=== PATIENT | male | born 1960 | race Caucasian/White ===

== ENCOUNTER 2017-10-14 11:07 | Inpatient (IN) | payer MEDICAID ==
[2017-10-14 12:28] LABS: BASO # 0.1 K/uL (0.0-0.2); EOS # 0.1 K/uL (0.0-0.7); EOS % 2.3 % (0.0-4.0); HEMOGLOBIN 12.9 g/dL (12.0-18.0); LYMPH # 1.2 K/uL (1.0-4.3); LYMPH % 20.6 % (20.0-40.0); MEAN CELL VOLUME 86.7 fl (80.0-94.0); MEAN CORPUSCULAR HEMOGLOBIN 28.6 pg (27.0-31.0); MEAN PLATELET VOLUME 9.6 fl (7.2-11.7); MONO # 0.4 K/uL (0.0-0.8); MONO % 7.3 % (0.0-10.0); NEUT # 4.1 K/uL (1.8-7.0); NEUT % 67.8 % (50.0-75.0); RBC 4.5 Mil/uL (4.40-5.90); RED CELL DISTRIBUTION WIDTH 13.7 % (11.5-14.5)
[2017-10-14 12:39] LABS: INR 1.1 (0.9-1.2); PARTIAL THROMBOPLASTIN TIME 30.8 Seconds (25.6-37.1); PROTHROMBIN TIME 12.7 Seconds (9.8-13.1)
[2017-10-14 13:03] LABS: BLOOD UREA NITROGEN 15 mg/dl (9-20); GFR AFRICAN-AMERICAN > 60; GFR NON-AFRICAN AMERICAN > 60; HDL CHOLESTEROL 27 MG/DL (30-70)
[2017-10-14 13:14] LABS: LDL CHOLESTEROL 70 mg/dL (0-129)
[2017-10-14] MEDS ORDERED: Nicardipine 20 MG/200 ML 20 MG/200 ML BAG IV ONE ×3 (13:47→21:09)
--- NOTE | 2017-10-14 13:49 | ED PDOC ---
HPI: Neurologic - General Time Seen by Provider: 10/14/17 11:39 Chief Complaint (Nursing): Weakness/Neurological Deficit Chief Complaint (Provider): Difficulty speaking Source: patient Exam Limitations: no limitations - History of Present Illness Timing/Duration: 1 week Associated Symptoms: other (difficulty with speech). denies: fever/chills, nausea/vomiting, numbness in legs/feet, weakness Allergies/Adverse Reactions: Allergies No Known Allergies Allergy (Verified 10/14/17 11:29) Home Medications: Ambulatory Orders Atenolol [Tenormin] 50 mg PO DAILY 03/14/15 Diphenhydramine HCl [Diphenhydramine] 100 mg PO HS 03/14/15 Valsartan/Hydrochlorothiazide [Valsartan and Hydrochlorothiazide 12.5 mg-80 ] 1 tab PO DAILY 03/14/15 Escitalopram [Lexapro] 20 mg PO DAILY 10/14/17 Multivitamin [Multi-Vitamin Daily] 1 tab PO DAILY 10/14/17 Olanzapine [Zyprexa] 15 mg PO HS 10/14/17 Vitamin E [Vitamin E 400 Units Cap] 400 unit PO DAILY 10/14/17 Additional Complaint(s): Miko Pereyra is a 57 year old male, with a past medical history of HTN, gastritis and schizophrenia, who presents to the emergency department accompanied by family members for difficulty with speech onset for x1 week. Patient doesn't know and didn't think too much of symptoms but was prompted to the ED by family members. He denies any headache, weakness or numbness, gait problems, fever, chills, nausea, vomit, or diarrhea. No further medical complaints. PMD: Lizzy Perry NIHSS Stroke Scale - Date/Time Evaluation Performed Date Performed: 10/14/17 Time Performed: 11:40 When Was NIHSS Performed: 7-10 days - How Severe is the Stroke Level of Consciousness: 0=Alert LOC to Questions: 0=Both comments correct LOC to commands: 0=Obeys both correctly Best Gaze: 0=Normal Visual: 0=No visual loss Facial: 1=Minor asymmetry Motor Arm - Left: 0=No drift Motor Arm - Right: 0=No drift Motor Leg - Left: 0=No drift Motor Leg - Right: 0=No drift Limb Ataxia: 0=Absent Sensory: 0=Normal Best Language: 0=No aphasia Dysarthia: 1=Mild to moderate slurring Extinction & Inattention (Neglect): 0=Normal, no object Score: 2 rTPA Inclusion/Exclusion - Refusal of Treatment Patient Refused Treatment: No - Inclusion Criteria for Altepase Patient is 18 years or Older: Yes The Clinical Diagnosis of Ischemic Stroke That is Causing a Potentially Disabling Neurological Deficit: No Time of Onset is Well Established to be Less Than 270 Minute Before Treatment Would Begin: No Risk/Benefit Discussed With Patient/Family Member Present: No - Exclusion Criteria for Altepase Evidence of an Intracranial Hemorrhage: Yes Past Medical History Reviewed: Historical Data, Nursing Documentation, Vital Signs Vital Signs: Last Vital Signs Temp 97.4 F L 10/14/17 11:22 Pulse 60 10/14/17 11:22 Resp 22 10/14/17 11:22 BP 171/101 H 10/14/17 11:22 Pulse Ox 98 10/14/17 11:22 - Medical History PMH: Gastritis, HTN, Schizophrenia - Surgical History Surgical History: No Surg Hx - Family History Family History: States: No Known Family Hx - Social History Current smoker - smoking cessation education provided: No Alcohol: None Drugs: Denies - Home Medications Home Medications: Ambulatory Orders Medication Instructions Recorded Atenolol [Tenormin] 50 mg PO DAILY 03/14/15 Diphenhydramine HCl 100 mg PO HS 03/14/15 [Diphenhydramine] Valsartan/Hydrochlorothiazide 1 tab PO DAILY 03/14/15 [Valsartan and Hydrochlorothiazide 12.5 mg-80 ] Escitalopram [Lexapro] 20 mg PO DAILY 10/14/17 Multivitamin [Multi-Vitamin Daily] 1 tab PO DAILY 10/14/17 Olanzapine [Zyprexa] 15 mg PO HS 10/14/17 Vitamin E [Vitamin E 400 Units Cap] 400 unit PO DAILY 10/14/17 - Allergies Allergies/Adverse Reactions: Allergies Allergy/AdvReac Type Severity Reaction Status Date / Time No Known Allergies Allergy Verified 10/14/17 11:29 Review of Systems ROS Statement: Except As Marked, All Systems Reviewed And Found Negative Constitutional: Negative for: Fever, Chills Gastrointestinal: Negative for: Nausea, Vomiting, Diarrhea Neurological: Positive for: Change in Speech (difficulty with speech). Negative for: Weakness, Numbness, Headache, Other (gait problems) Physical Exam - Reviewed Nursing Documentation Reviewed: Yes Vital Signs Reviewed: Yes - Physical Exam Appears: Positive for: Non-toxic, No Acute Distress Head Exam: Positive for: ATRAUMATIC, NORMAL INSPECTION, NORMOCEPHALIC Skin: Positive for: Normal Color, Warm, Dry Eye Exam: Positive for: Normal appearance, EOMI, PERRL ENT: Positive for: Normal ENT Inspection Neck: Positive for: Painless ROM, Supple Cardiovascular/Chest: Positive for: Regular Rate, Rhythm. Negative for: Murmur Respiratory: Positive for: Normal Breath Sounds. Negative for: Respiratory Distress Gastrointestinal/Abdominal: Positive for: Normal Exam, Soft. Negative for: Tenderness, Guarding, Rebound Extremity: Positive for: Normal ROM (upper and lower extremities.). Negative for: Tenderness, Deformity, Swelling Neurologic/Psych: Positive for: Alert, carriage feeder II-XII (facial assymetry), Oriented ( x3), Gait (steady), Facial Droop (mild ). Negative for: Motor/Sensory Deficits (normal on arms and legs) - Laboratory Results Result Diagrams: 10/15/17 04:45 10/15/17 04:45 - ECG O2 Sat by Pulse Oximetry: 98 (RA) Pulse Ox Interpretation: Normal - Critical Care Total Time (In Min): 30 Medical Decision Making Medical Decision Making: Initial Impression: Dysarthria, CVA, hemorrhagic CVA. Initial Plan: Stroke protocol work up --Head w/o Contrast [CT] --EKG --Alcohol serum --BMP --Drug screen, urine --Lipid Panel --Troponin I --CBC w/ differential --PTT --PT --Reevaluation 13:[address] FINDINGS: HEMORRHAGE: Small intraparenchymal hemorrhage is appreciate left basal ganglia with limited local edema. The density is likely E subacute rather than acute in appearance overall. Clinically correlate further. Subacute timeframe fits with the clinical history of dysarthria for almost 1 week. There is no significant mass effect although the hemorrhage does approach the lateral margins of the anterior body of the left lateral ventricle. Overall volume of the hemorrhagic collection is as follows: 2.0 x 1.4 x 2.6 cm (anteroposterior by transverse by superoinferior dimensions). BRAIN: Otherwise, a moderate sized chronic lobar infarction is identified in the right frontal lobe with a chronic lacune identified the upper right basal ganglia posteriorly and possibly at the left thalamus also. Further, white-matter appears lucent surrounding the lateral ventricles and also in the subcortical distribution potentially reflecting advanced chronic microangiopathy for a 57- year-old patient or other white-matter disorder. Corpus callosum does not appear affected. Clinically correlate further. 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 VENTRICLES: Unremarkable. No hydrocephalus. CALVARIUM: Unremarkable. PARANASAL SINUSES: Unremarkable as visualized. No significant inflammatory changes. MASTOID AIR CELLS: Unremarkable as visualized. No inflammatory changes. OTHER FINDINGS: None. IMPRESSION: 1. For mild intraparenchymal hemorrhage identified the left basal ganglia measure 2.6 cm greatest dimension with limited local edema surrounding the periphery. The level of density suggests probable subacute timeframe. Clinically correlate further. No significant mass effect this time. Please see discussion above. 2. Relatively prominent chronic microangiopathy type white-matter lucency pattern appear relatively advanced for age of the patient. Clinically correlate for potential additional white matter etiologies. 3. Moderate from chronic lobar infarction. Chronic lacune upper right basal ganglia and possibly tiny lacune left thalamus. Findings discussed with Dr. Gould 10/14/2017 1:35 p.m. with written down and read back verification. -Spoke with Dr. Hager for admission and wants Dr. Pabon from neurology and will also consult with neurosurgeon. -Spoke with Dr. Pabon who advised to control the HTN with Nicardipine. TPA in contraindicated and not a candidate as well. ASA is contraindicated due to ICH. -Discussed with Dr. Martinez who states no neurosurgery treatment or evaluation is indicated for this patient. 15:40 -Spoke with ict sales assistant, Dr. Waddell, who accepted patient to ICU for uncontrolled blood pressure. Scribe Attestation: Documented by Charlie Durant, acting as a scribe for Cathleen Gould PA-C Provider Scribe Attestation: All medical record entries made by the Scribe were at my direction and personally dictated by me. I have reviewed the chart and agree that the record accurately reflects my personal performance of the history, physical exam, medical decision making, and the department course for this patient. I have also personally directed, reviewed, and agree with the discharge instructions and disposition. Disposition - Clinical Impression Clinical Impression: ICH (intracerebral hemorrhage) - Patient ED Disposition Is Patient to be Admitted: Yes Discussed With : Kike Hager Doctor Will See Patient In The: Hospital - Disposition Disposition Time: 14:45 Condition: GUARDED - Pt Status Changed To: Hospital Disposition Of: Inpatient - Admit Certification Admit to Inpatient:: After my assessment, the patient will require hospitalization for at least two midnights. This is because of the severity of symptoms shown, intensity of services needed, and/or the medical risk in this patient being treated as an outpatient. - POA Present On Arrival: None
[2017-10-14] MEDS ORDERED: Nicardipine 20 MG/200 ML 20 MG/200 ML BAG ONE ×2 (13:55→15:50)
--- NOTE | 2017-10-14 16:18 | CP.PCM.PN ---
Subjective - Date & Time of Evaluation Date of Evaluation: 10/14/17 Time of Evaluation: 16:16 - Subjective Subjective: called by ER small thalamic hemorrhage not surgical lesion if anything changes reconsult Objective - Vital Signs/Intake and Output Vital Signs (last 24 hours): Temp Pulse Resp BP Pulse Ox 97.8 F 68 19 146/106 H 98 10/14/17 15:21 10/14/17 16:03 10/14/17 16:03 10/14/17 16:03 10/14/17 15:55 - Medications Medications: Current Medications Nicardipine HCl (Cardene Iv Premix) 20 mg in 200 mls @ 50 mls/hr IV .Q4H ONE; 5 MG/HR PRN Reason: Protocol Stop: 10/14/17 19:45 Last Admin: 10/14/17 15:52 Dose: 50 mls/hr - Labs Labs: 10/14/17 12:22 10/14/17 12:22 PT 12.7 Seconds (9.8-13.1) 10/14/17 12:22 INR 1.1 (0.9-1.2) 10/14/17 12:22 APTT 30.8 Seconds (25.6-37.1) 10/14/17 12:22
--- NOTE | 2017-10-14 16:31 | CP.PCM.CON ---
History of Present Illness - History of Present Illness History of Present Illness: 57yo M. PMHx HTN, schizophrenia, gastritis. p/w 1 week of dysarthria. Head CT show left basal ganglia ICH. Review of Systems - Review of Systems All systems: reviewed and no additional remarkable complaints except - Neurological Neurological: Abnormal Speech Past Patient History - Past Social History Alcohol: None Drugs: Denies - CARDIAC Hx Cardiac Disorders: Yes - ENDOCRINE/METABOLIC Hx Endocrine Disorders: Yes - GASTROINTESTINAL Hx Gastritis: Yes - PSYCHIATRIC Hx Schizophrenia: Yes Meds Allergies/Adverse Reactions: Allergies Allergy/AdvReac Type Severity Reaction Status Date / Time No Known Allergies Allergy Verified 10/14/17 11:29 - Medications Medications: Current Medications Nicardipine HCl (Cardene Iv Premix) 20 mg in 200 mls @ 50 mls/hr IV .Q4H ONE; 5 MG/HR PRN Reason: Protocol Stop: 10/14/17 19:45 Last Admin: 10/14/17 15:52 Dose: 50 mls/hr Physical Exam - Head Exam Head Exam: ATRAUMATIC, NORMAL INSPECTION, NORMOCEPHALIC - Eye Exam Eye Exam: EOMI, Normal appearance, PERRL - ENT Exam ENT Exam: Mucous Membranes Moist, Normal Exam - Neck Exam Neck exam: Positive for: Normal Inspection - Respiratory Exam Respiratory Exam: Clear to Auscultation Bilateral, NORMAL BREATHING PATTERN - Cardiovascular Exam Cardiovascular Exam: REGULAR RHYTHM - Neurological Exam Neurological exam: Alert, CN II-XII Intact, Normal Gait, Oriented x3, Reflexes Normal Additional comments: dysarthria Results - Vital Signs Recent Vital Signs: Last Vital Signs Temp 97.8 F 10/14/17 15:21 Pulse 68 10/14/17 16:03 Resp 19 10/14/17 16:03 BP 146/106 H 10/14/17 16:03 Pulse Ox 98 10/14/17 15:55 - Labs Result Diagrams: 10/14/17 12:22 10/14/17 12:22 Labs: Laboratory Results - last 24 hr 10/14/17 10/14/17 10/14/17 12:22 12:22 12:22 WBC 6.0 RBC 4.50 Hgb 12.9 Hct 39.0 MCV 86.7 MCH 28.6 MCHC 33.0 RDW 13.7 Plt Count 123 L MPV 9.6 Neut % (Auto) 67.8 Lymph % (Auto) 20.6 [place] % (Auto) 7.3 Eos % (Auto) 2.3 Baso % (Auto) 2.0 Neut # (Auto) 4.1 Lymph # (Auto) 1.2 [place] # (Auto) 0.4 Eos # (Auto) 0.1 Baso # (Auto) 0.1 PT 12.7 INR 1.1 APTT 30.8 Sodium 142 Potassium 3.8 Chloride 98 Carbon Dioxide 30 Anion Gap 18 BUN 15 Creatinine 1.1 Est GFR ( Amer) > 60 Est GFR (Non-Af Amer) > 60 Random Glucose 101 Calcium 9.0 Troponin I < 0.0120 Triglycerides 147 Cholesterol 130 LDL Cholesterol Direct 70 HDL Cholesterol 27 L Alcohol, Quantitative < 10 Assessment & Plan (1) ICH (intracerebral hemorrhage) Assessment and Plan: 57yo M. PMHx HTN, schizophrenia, gastritis. p/w 1 week of dysarthria secondary to left basal ganglia ICH. Neuro: only neurological symptom is dysarthria, neuro checks. repeat head ct in am. Pulm: no acute issues, breathing spontaneously on room air CV: blood pressure control, cardene gtt to maintain SBP<140 Hem: no acute issues Renal: no acute issues, urine output wnl Endo: no acute issues GI: NPO, until dysphagia assessment. ID: no acute issues DVT proph - held with current bleed, SCD's GI proph - not currently indicated Code status - full code Critical Care Time spent 35 minutes Multi-disciplinary rounds were performed with house staff, nursing, speech therapy, respiratory therapy, pharmacy and nutrition with integrated input from the primary team/attending and other consulting services. The documented time is cumulative and includes review of patient data/exams/labs/chart review and examination of the patient on rounds and throughout the day; time is exclusive of any procedures or teaching time. Status: Acute
[2017-10-14 19:53] LABS: HDL CHOLESTEROL 33 MG/DL (30-70)
[2017-10-14 20:04] LABS: LDL CHOLESTEROL 82 mg/dL (0-129)
[2017-10-15 06:04] LABS: HEMOGLOBIN 13.6 g/dL (12.0-18.0); MEAN CELL VOLUME 87.1 fl (80.0-94.0); MEAN CORPUSCULAR HEMOGLOBIN 28.4 pg (27.0-31.0); MEAN CORPUSCULAR HGB CONC 32.6 g/dL (33.0-37.0); RBC 4.79 Mil/uL (4.40-5.90); RED CELL DISTRIBUTION WIDTH 13.7 % (11.5-14.5); WHITE BLOOD COUNT 6.9 K/uL (4.8-10.8)
--- NOTE | 2017-10-15 06:08 | CON ---
DATE: 10/14/2017 NEUROLOGY CONSULTATION CHIEF COMPLAINT: Dysarthria. HISTORY OF PRESENT ILLNESS: This is a 57-year-old man with a history of hypertension and gastritis who presented to the hospital with difficulty with speech for the past 1 week. The patient did not think much of the symptoms, denies any headaches or any focal weakness, but had some gait problems and came in for further evaluation. His blood pressure initially was 171/101, which was elevated systolic and diastolic. He had a CAT scan of the head, which showed a small intraparenchymal hemorrhage in the left basal ganglia with some limited edema, which overall neurosurgery felt there is no neurosurgical intervention. There is an old chronic lobar infarction in the right frontal lobe as well and old lacunar infarct in the left thalamus. He has also right-sided weakness, otherwise, no major focal deficits. Now he has some dysarthria present. PAST MEDICAL HISTORY: Hypertension, gastritis, and schizophrenia. MEDICATIONS: Reviewed by nurse per reconciliation sheet. FAMILY HISTORY: Noncontributory. ALLERGIES: NO KNOWN DRUG ALLERGIES. REVIEW OF SYSTEMS: A 14-point review of systems is negative except in the HPI. PHYSICAL EXAMINATION: GENERAL: The patient is seen up in bed, in no acute distress. VITAL SIGNS: Temperature 97, pulse rate 67, blood pressure 160/104, respiratory rate 19, and oxygen saturation 98% on room air. HEENT: Atraumatic and normocephalic. PERRLA. Extraocular movements intact. NECK: Supple. No JVD. No adenopathy noted. CARDIOPULMONARY: S1 and S2. Normal rate and rhythm. No murmurs, rubs or gallops. LUNGS: Clear to auscultation. No adventitious sounds. ABDOMEN: Soft, nontender, and nondistended. Bowel sounds are present. EXTREMITIES: No clubbing. No cyanosis. Peripheral pulses 2+ bilaterally. NEUROLOGIC: The patient is alert and oriented to person, place, month, and year. Speech is dysarthric. On cranial nerve testing, there is mild right facial droop. Otherwise, rest of cranial nerves normal. Motor exam: Mild right-sided weakness with mild right pronator drift compared to the left. The left side is intact. Sensory: Light touch, pinprick, proprioception, and vibration are intact. DTRs are 2+ throughout. Coordination: [id number] intact. There is some mild dysmetria on the [id number] on the right due to mild right-sided weakness. Gait is deferred for now. LABORATORY DATA: Sodium is 142, potassium is 3.8, chloride is 98, carbon dioxide 30, BUN of 15, creatinine 1.1, and random glucose of 101. U-tox is negative. ASSESSMENT AND PLAN: This is a 57-year-old man with a history of schizophrenia and history of hypertension who came in with dysarthria for the past 1 week with some mild right-sided weakness and right facial droop, found to have elevated systolic and diastolic blood pressures of 171/101 and was given in the ER. He had a CAT scan, which showed a small intraparenchymal hemorrhage in the left basal ganglia with locally an edema with no surgical intervention by neurosurgery recommendations. At this time, intraparenchymal hemorrhage on the left basal ganglia, which is intraparenchymal, is secondary to hypertensive emergency. At this time, recommend: 1. Keep blood pressure between 120s to 130s systolic and diastolic 70s to 80s, possibly place on nicardipine drip and monitor in the ICU for 24 hours. 2. No antiplatelet for 3 weeks in the onset of hemorrhage and can start baby aspirin 81 mg in 3 weeks. 3. Get MRI of the brain and MRA of the head. 4. PT and OT assessment and continue on current present medical management. Thank you for this consult. Xavier Pabon MD
[2017-10-15 06:12] LABS: ALB/GLOB RATIO 1.2 (1.0-2.1); ALBUMIN 3.9 g/dL (3.5-5.0); ALT/SGPT 32 U/L (21-72); AST/SGOT 24 U/L (17-59); BLOOD UREA NITROGEN 17 mg/dl (9-20); GFR AFRICAN-AMERICAN > 60; GFR NON-AFRICAN AMERICAN > 60
[2017-10-15] MEDS ORDERED: Pneumococcal 23-Valent Vaccine IM ONE (08:30)
--- NOTE | 2017-10-15 09:21 | CARD ---
APPROVED REPORT EKG Measurement Heart [id number] <Conclusion> Sinus bradycardia T wave abnormality, consider anterolateral ischemia Abnormal ECG
--- NOTE | 2017-10-15 12:09 | MRI ---
PROCEDURE: MRI BRAIN WITHOUT CONTRAST HISTORY: iCH COMPARISON: Unenhanced head CT 10/14/2017. TECHNIQUE: Multiplanar, multisequence MR images of the brain were obtained without intravenous contrast enhancement. FINDINGS: BRAIN PARENCHYMA: Left basal ganglia intraparenchymal hemorrhage is reiterated with likely extension to the subependymal margins at the left lateral ventricle as no layering of hemorrhage and anteriorly as seen in the left lateral ventricle body or atrium at this time. The overall pattern does not appear to have increased in size in the interval measuring a maximum of 2.3 cm greatest dimension which may not adequately translate to the CT pattern given differences and imaging technique. No prominent interval intracranial hemorrhage is identified and there remains no significant mass effect due to the acute or subacute hemorrhage. However, there are multiple small foci of hemosiderin dephasing signal in the gradient echo axial series scattered throughout the cerebellum, also including the brainstem. There not predominate peripheral though number located in the periphery of the bilateral frontal parietal and temporal lobes, but also affect central brain including the bilateral thalami. No calcifications were seen associated with these foci in the prior CT examination and the pattern is felt to be a function of multiple cavernomata rather than amyloid angiopathy or neurocysticercosis. Posttraumatic or post ischemic cystic encephalomalacia is reiterated at the right frontal lobe with relatively prominent subcortical and periventricular white matter changes sparing the corpus callosum in a pattern suggestive of likely chronic microangiopathy. Minimal involvement of the renetta is appreciated. The sulci and cisterns are unremarkable swells overall ventricular volume. VENTRICLES: Unremarkable. No hydrocephalus. CRANIUM: Unremarkable. ORBITS: Grossly unremarkable. PARANASAL SINUSES/MASTOIDS: Clear VASCULAR SYSTEM: Skull base flow voids intact. OTHER FINDINGS: None. IMPRESSION: Likely stable intraparenchymal hemorrhage left basal ganglia with local edema but no significant mass effect at this time. Follow-up CT advised. 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 Posttraumatic changes from diffuse axonal injury is also not favored. Chronic cystic encephalomalacia right frontal lobe reiterated. Relatively prominent white matter changes suggestive of advanced chronic microangiopathy. Clinically correlate nevertheless.
--- NOTE | 2017-10-15 12:14 | MRI ---
PROCEDURE: Magnetic Resonance Angiography Brain HISTORY: ICH COMPARISON: None available. TECHNIQUE: 3D time of flight MR angiography of the intracranial arteries was performed. Rotating maximum intensity projection images were generated. FINDINGS: INTERNAL CAROTID ARTERIES: Unremarkable. The skull base, petrous, cavernous and supraclinoid segments are bilaterally widely patient. ANTERIOR CEREBRAL ARTERIES: Unremarkable. A1 and A2 segments are widely patent. Smaller distal branches unremarkable, as visualized. MIDDLE CEREBRAL ARTERIES: Unremarkable. M1 and M2 segments are widely patent. Perisylvian branches grossly symmetric. POSTERIOR CIRCULATION: Basilar Artery: Unremarkable. Distal Vertebral Arteries: The distal right vertebral artery is likely markedly hypoplastic with a widely patent though ectatic distal left vertebral artery identified. Posterior Cerebral Arteries: Unremarkable. Posterior Inferior Cerebellar Arteries: Unremarkable. ANEURYSM/ VASCULAR MALFORMATIONS: None. OTHER FINDINGS: None. IMPRESSION: Intact tus[place] of [place] major arteries as discussed above. No returns malformation or aneurysm or significant stenosis is identified. Note is made of a likely markedly hypoplastic distal right vertebral artery with a widely patent though ectatic distal left vertebral artery evident.
--- NOTE | 2017-10-15 12:19 | CT ---
PROCEDURE: CT HEAD WITHOUT CONTRAST. HISTORY: ich COMPARISON: None available. TECHNIQUE: Axial computed tomography images were obtained through the head/brain without intravenous contrast. Radiation dose: Total exam DLP = 991.27 mGy-cm. This CT exam was performed using one or more of the following dose reduction techniques: Automated exposure control, adjustment of the mA and/or kV according to patient size, and/or use of iterative reconstruction technique. FINDINGS: HEMORRHAGE: Stable posterior left basal ganglia intraparenchymal hemorrhage is appreciated measuring 2.0 x 1.9 x 2.3 cm with local edema but no significant mass effect once again. No interval new hemorrhagic location is appreciated above or below the tentorium including the extra-axial spaces. BRAIN: Chronic cystic encephalomalacia at the right frontal lobe is reiterated as well as diffuse cerebral white matter changes suggestive of chronic microangiopathy and left caudate head chronic lacune. No cortical edema throughout with brainstem and cerebellum remaining unremarkable diffusely. VENTRICLES: Unremarkable. No hydrocephalus. CALVARIUM: Unremarkable. PARANASAL SINUSES: Unremarkable as visualized. No significant inflammatory changes. MASTOID AIR CELLS: Unremarkable as visualized. No inflammatory changes. OTHER FINDINGS: None. IMPRESSION: Stable left basal ganglia intraparenchymal hemorrhage including local edema. No interval mass effect is appreciated or new site of intracranial hemorrhage. Chronic in cystic encephalomalacia right frontal lobe is reiterated as well as a chronic lacune at the anterior left basal ganglia. Likely a relatively prominent chronic microangiopathy reiterated.
[2017-10-15 12:52] VITALS: BMI 25.7
--- NOTE | 2017-10-15 12:53 | CP.PCM.HP ---
<Chandana Gardner - Last Filed: 10/15/17 12:44> History of Present Illness - History of Present Illness History of Present Illness: CC: slurred speech HPI: 57 y/o man w/ pmh of HTN, gastritis, and schizophrenia, presents to the ED w/ sluured speech. Patient brought by family members for difficulty with speech onset for x1 week. Patient unaware of slurring speech but family was concerned. Patient denies headache, weakness or numbness, gait problems, fever , chills, chest pain, SOB, abdominal pain, nausea, vomiting, diarrhea, or dysuria. The patient has no further medical complaints. Mother at bedside reports that son's face may be asymmetrical at baseline due to poor dentition. PMD: Dr. Lizzy Perry PMH: HTN, gastritis, and schizophrenia meds: see med list Allergies: NKDA PSH: denies Fam: denies SOC: denies smoking, alcohol, and drugs ROS: 12 points assessed and negative unless otherwise reported in HPI Present on Admission - Present on Admission Any Indicators Present on Admission: No History of DVT/PE: No History of Uncontrolled Diabetes: No Urinary Catheter: No Decubitus Ulcer Present: No Review of Systems - Review of Systems All systems: reviewed and no additional remarkable complaints except - Constitutional Constitutional: absent: Chills, Fever, Headache - EENT Eyes: absent: Change in Vision - Cardiovascular Cardiovascular: absent: Chest Pain, Palpitations - Respiratory Respiratory: absent: Cough, Dyspnea, Hemoptysis, Wheezing - Gastrointestinal Gastrointestinal: absent: Abdominal Pain, Diarrhea, Nausea, Vomiting - Genitourinary Genitourinary: absent: Dysuria - Integumentary Integumentary: absent: Rash Past Patient History - Past Social History Alcohol: None Drugs: Denies - CARDIAC Hx Cardiac Disorders: Yes - NEUROLOGICAL Other/Comment: schizophrenia - ENDOCRINE/METABOLIC Hx Endocrine Disorders: Yes - MUSCULOSKELETAL/RHEUMATOLOGICAL Hx Falls: No - GASTROINTESTINAL Hx Gastritis: Yes - PSYCHIATRIC Hx Schizophrenia: Yes Meds Allergies/Adverse Reactions: Allergies Allergy/AdvReac Type Severity Reaction Status Date / Time No Known Allergies Allergy Verified 10/14/17 11:29 Physical Exam - Constitutional Appears: Non-toxic, No Acute Distress - Head Exam Head Exam: ATRAUMATIC, NORMAL INSPECTION, NORMOCEPHALIC - Eye Exam Eye Exam: EOMI, Normal appearance, PERRL - ENT Exam ENT Exam: Mucous Membranes Moist - Neck Exam Neck exam: Positive for: Full Rom. Negative for: Tenderness - Respiratory Exam Respiratory Exam: Clear to Auscultation Bilateral. absent: Accessory Muscle Use , Decreased Breath Sounds, Rales, Rhonchi, Wheezes, Respiratory Distress - Cardiovascular Exam Cardiovascular Exam: REGULAR RHYTHM. absent: Tachycardia - GI/Abdominal Exam GI & Abdominal Exam: Normal Bowel Sounds, Soft. absent: Distended, Tenderness - Extremities Exam Extremities exam: Negative for: calf tenderness, pedal edema, tenderness - Neurological Exam Neurological exam: Alert, CN II-XII Intact, Oriented x3 - Skin Skin Exam: Dry, Intact, Normal Color, Warm Results - Vital Signs Recent Vital Signs: Last Vital Signs Temp 98.7 F 10/15/17 12:00 Pulse 75 10/15/17 12:00 Resp 30 H 10/15/17 12:00 BP 119/82 10/15/17 12:00 Pulse Ox 97 10/15/17 12:00 - Labs Result Diagrams: 10/15/17 04:45 10/15/17 04:45 Labs: Laboratory Results - last 24 hr 10/14/17 10/14/17 10/15/17 12:22 19:00 04:45 WBC 6.9 RBC 4.79 Hgb 13.6 Hct 41.7 MCV 87.1 MCH 28.4 MCHC 32.6 L RDW 13.7 Plt Count 124 L Sodium 142 Potassium 3.8 Chloride 98 Carbon Dioxide 30 Anion Gap 18 BUN 15 Creatinine 1.1 Est GFR ( Amer) > 60 Est GFR (Non-Af Amer) > 60 Random Glucose 101 Calcium 9.0 Total Bilirubin AST ALT Alkaline Phosphatase Troponin I < 0.0120 Total Protein Albumin Globulin Albumin/Globulin Ratio Triglycerides 147 83 D Cholesterol 130 146 LDL Cholesterol Direct 70 82 HDL Cholesterol 27 L 33 Alcohol, Quantitative < 10 10/15/17 04:45 WBC RBC Hgb Hct MCV MCH MCHC RDW Plt Count Sodium 146 Potassium 3.3 L Chloride 104 Carbon Dioxide 26 Anion Gap 19 BUN 17 Creatinine 0.9 Est GFR ( Amer) > 60 Est GFR (Non-Af Amer) > 60 Random Glucose 98 Calcium 9.0 Total Bilirubin 1.2 AST 24 ALT 32 Alkaline Phosphatase 53 Troponin I Total Protein 7.1 Albumin 3.9 Globulin 3.3 Albumin/Globulin Ratio 1.2 Triglycerides Cholesterol LDL Cholesterol Direct HDL Cholesterol Alcohol, Quantitative Assessment & Plan (1) ICH (intracerebral hemorrhage) Status: Acute (2) HTN (hypertension) Status: Chronic - Assessment and Plan (Free Text) Plan: c/w present management afebrile, non-tachycardic, normotensive neurology recommendations appreciated; no antiplatelets for 3 weeks, can start baby aspirin in 3 weeks neuro-surgery recommendations appreciated cardiology consult ordered EKG: sinus bradycardia, T wave depression/flattenning on anterolateral leads CT head w/o 10/14/2017: showed left basal ganglia intracranial hemorrhage w/ chronic lacunar infarct repeat Ct head w/o: stable left basal ganglia intracranial hemorrhage MRA head w/o contrast: intact [place], 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 ectatic distal left vertebral artery f/u echo w/ bubble study f/u speech/swallow eval PT/OT ordered monitor for acute changes <Kike Hager - Last Filed: 10/15/17 21:33> Results - Vital Signs Recent Vital Signs: Last Vital Signs Temp 98.2 F 10/15/17 20:00 Pulse 79 10/15/17 20:00 Resp 19 10/15/17 20:00 BP 140/68 10/15/17 20:00 Pulse Ox 97 10/15/17 20:00 - Labs Result Diagrams: 10/15/17 04:45 10/15/17 04:45 Labs: Laboratory Results - last 24 hr 10/15/17 10/15/17 04:45 04:45 WBC 6.9 RBC 4.79 Hgb 13.6 Hct 41.7 MCV 87.1 MCH 28.4 MCHC 32.6 L RDW 13.7 Plt Count 124 L Sodium 146 Potassium 3.3 L Chloride 104 Carbon Dioxide 26 Anion Gap 19 BUN 17 Creatinine 0.9 Est GFR ( Amer) > 60 Est GFR (Non-Af Amer) > 60 Random Glucose 98 Calcium 9.0 Total Bilirubin 1.2 AST 24 ALT 32 Alkaline Phosphatase 53 Total Protein 7.1 Albumin 3.9 Globulin 3.3 Albumin/Globulin Ratio 1.2 Assessment & Plan - Assessment and Plan (Free Text) Plan: I was present during evaluation and discussed with Dr Gardner re plans of care and mgt. Kike Hager M.D.
--- NOTE | 2017-10-15 14:08 | CP.CCUPN ---
CCU Subjective - Physician Review Events Since Last Encounter (Free Text): 10/15/17 13:52 speech still dysarthric. CCU Objective - Vital Signs / Intake & Output Vital Signs (Last 4 hours): Vital Signs Temp Pulse Resp BP Pulse Ox 10/15/17 12:00 98.7 F 75 30 H 119/82 97 10/15/17 10:00 70 24 124/78 98 Intake and Output (Last 8hrs): Intake & Output 10/14/17 10/15/17 10/15/17 22:59 06:59 14:59 Intake Total 295 50 Output Total 225 Balance 70 50 Intake: IV 295 50 Output: Urine 225 Urine, Voided 225 - Physical Exam Head: Positive for: Atraumatic, Normocephalic Pupils: Positive for: PERRL Extroacular Muscles: Positive for: EOMI Mouth: Positive for: Moist Mucous Membranes Neck: Positive for: Normal Range of Motion Respiratory/Chest: Positive for: Clear to Auscultation, Good Air Exchange Cardiovascular: Positive for: Regular Rate and Rhythm Abdomen: Positive for: Normal Bowel Sounds. Negative for: Tenderness, Distention Neurological: Positive for: GCS=15, Other (dysarthria) Psychiatric: Positive for: Alert, Oriented x 3 - Medications Active Medications: Active Medications Generic Name Dose Route Start Last Admin Trade Name Freq PRN Reason Stop Dose Admin Pantoprazole Sodium 40 mg 10/15/17 09:00 10/15/17 08:53 Protonix Inj IVP 40 mg DAILY MIKEL Administration Valsartan 160 mg 10/15/17 13:45 Diovan PO DAILY MIKEL - Patient Studies Lab Studies: Lab Studies 10/15/17 10/15/17 10/14/17 Range/Units 04:45 04:45 19:00 WBC 6.9 (4.8-10.8) K/uL RBC 4.79 (4.40-5.90) Mil/uL Hgb 13.6 (12.0-18.0) g/dL Hct 41.7 (35.0-51.0) % MCV 87.1 (80.0-94.0) fl MCH 28.4 (27.0-31.0) pg MCHC 32.6 L (33.0-37.0) g/dL RDW 13.7 (11.5-14.5) % Plt Count 124 L (130-400) K/uL Sodium 146 (132-148) mmol/l Potassium 3.3 L (3.6-5.0) MMOL/L Chloride 104 (98-107) mmol/L Carbon Dioxide 26 (22-30) mmol/L Anion Gap 19 (10-20) BUN 17 (9-20) mg/dl Creatinine 0.9 (0.8-1.5) mg/dl Est GFR ( Amer) > 60 Est GFR (Non-Af Amer) > 60 Random Glucose 98 (75-110) mg/dL Calcium 9.0 (8.4-10.2) mg/dL Total Bilirubin 1.2 (0.2-1.3) mg/dl AST 24 (17-59) U/L ALT 32 (21-72) U/L Alkaline Phosphatase 53 (38-126) U/L Total Protein 7.1 (6.3-8.2) G/DL Albumin 3.9 (3.5-5.0) g/dL Globulin 3.3 (2.2-3.9) gm/dL Albumin/Globulin Ratio 1.2 (1.0-2.1) Triglycerides 83 D (0-149) mg/DL Cholesterol 146 (0-199) mg/dL LDL Cholesterol Direct 82 (0-129) mg/dL HDL Cholesterol 33 (30-70) MG/DL Laboratory Results - last 24 hr 10/14/17 10/15/17 10/15/17 19:00 04:45 04:45 WBC 6.9 RBC 4.79 Hgb 13.6 Hct 41.7 MCV 87.1 MCH 28.4 MCHC 32.6 L RDW 13.7 Plt Count 124 L Sodium 146 Potassium 3.3 L Chloride 104 Carbon Dioxide 26 Anion Gap 19 BUN 17 Creatinine 0.9 Est GFR ( Amer) > 60 Est GFR (Non-Af Amer) > 60 Random Glucose 98 Calcium 9.0 Total Bilirubin 1.2 AST 24 ALT 32 Alkaline Phosphatase 53 Total Protein 7.1 Albumin 3.9 Globulin 3.3 Albumin/Globulin Ratio 1.2 Triglycerides 83 D Cholesterol 146 LDL Cholesterol Direct 82 HDL Cholesterol 33 Review of Systems - Review of Systems All systems: reviewed and no additional remarkable complaints except (no complaints) Critical Care Progress Note - Nutrition Nutrition: Nutrition Category Date Time Status Heart Healthy Diet [DIET] Diets 10/15/17 Lunch Active Assessment/Plan (1) ICH (intracerebral hemorrhage) Assessment and plan: 57yo M. PMHx HTN, schizophrenia, gastritis. p/w 1 week of dysarthria secondary to left basal ganglia ICH. Neuro: only neurological symptom is dysarthria, neuro checks. repeat head ct showed no change. Pulm: no acute issues, breathing spontaneously on room air CV: blood pressure control, stopped cardene gtt, started back on oral anti- hypertensives, higher dose valsartan 160mg. Hem: no acute issues Renal: no acute issues, urine output wnl Endo: no acute issues GI: low sodium diet ID: no acute issues DVT proph - held with current bleed, SCD's, patient is ambulatory GI proph - not currently indicated Code status - full code Patient is stable for downgrade to the telemetry floors. Critical Care Time spent 35 minutes Multi-disciplinary rounds were performed with house staff, nursing, speech therapy, respiratory therapy, pharmacy and nutrition with integrated input from the primary team/attending and other consulting services. The documented time is cumulative and includes review of patient data/exams/labs/chart review and examination of the patient on rounds and throughout the day; time is exclusive of any procedures or teaching time. Current Visit: Yes Status: Acute
--- NOTE | 2017-10-15 19:09 | PN ---
NEUROLOGY FOLLOWUP DATE: 10/15/2017 CHIEF COMPLAINT: Followup for status post intraparenchymal hemorrhage and dysarthrias. SUBJECTIVE: The patient was seen and examined at bedside. Still has some dysarthria. His MRI of the brain shows stable intraparenchymal basal ganglia hemorrhage. No significant mass effect. Had some mild angiopathy also seen. His MRI of the head was unremarkable. Currently, he is doing much better. His blood pressure medications have been adjusted and no acute events overnight. PAST MEDICAL HISTORY: Hypertension, gastritis and schizophrenia. MEDICATIONS: Reviewed by nurse per reconciliation sheet. REVIEW OF SYSTEMS: A 14-point review of systems is negative except in the HPI. FAMILY HISTORY: Noncontributory. PHYSICAL EXAMINATION VITAL SIGNS: Temperature 98.7, pulse rate 75, blood pressure 132/97, respiratory rate 20 and oxygen saturations 96% by room air. GENERAL: The patient is sitting up in bed. No acute distress. HEENT: Atraumatic and normocephalic. PERRLA. Extraocular muscles intact. NECK: Supple. No JVD. No adenopathy noted. LUNGS: Clear to auscultation. No adventitious sounds. HEART: S1 and S2, normal rate and rhythm. No murmurs, rubs or gallops. ABDOMEN: Soft, nontender and nondistended. Bowel sounds present. EXTREMITIES: No clubbing. No cyanosis. Peripheral pulses 2+ bilaterally. NEUROLOGIC: The patient is alert and oriented to person, place, month, and year. Recall after 5 minutes is 0/3. Poor attention span. Slow thought process. Speech is dysarthric. Cranial nerves II to XII intact. Had some mild right facial droop. Motor exam; mild right-sided weakness with mild right pronator drip when compared to the left. Motor strength is intact. Sensory exam: light touch pinprick, proprioception, and vibration are intact. DTRs are 2+ throughout. Coordination, [id number] intact. There is some mild dysmetria on the [id number] on the right due to mild right-sided weakness. Gait is deferred for now. LABORATORY DATA: Reviewed. ASSESSMENT AND PLAN: This is a 57-year-old man with history of schizophrenia, hypertension, came in for dysarthria for past several week with mild right-sided weakness and right facial droop and found to have elevated systolic and diastolic blood pressures and found to have a left intraparenchymal left basal ganglia hemorrhage which is secondary to hypertensive urgency. RECOMMENDATIONS: At this time recommend; 1. Keep blood pressure systolically to 120s to 130s and diastolic 70s and 80s. 2. No anticoagulation for 3 weeks in the onset of hemorrhage. 3. PT/OT assessment. Continue on current present medical management. Thank you for this followup. Xavier Pabon MD
[2017-10-15] MEDS ORDERED: Potassium Chloride 20 mEq ER Tab PO ONE (19:38)
--- NOTE | 2017-10-15 22:07 | CP.PCM.CON ---
History of Present Illness - History of Present Illness History of Present Illness: consulation for evaluation of cardioembolic source of CVA HPI: 57-year-old male with history of history of schizophrenia hypertension gastritis brought in by family member for evaluation of slurred speech going on for a week patient's mother and uncle at the bedside who gave most of the information as per the family member he has been having difficulty for speech for about a week for which family was concerned and brought him to the emergency room according to patient's mother he was okay until he and his teenage years when 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 Mother at bedside reports that son face is also noted to be asymmetrical due to poor dentition. Past medical history as stated above significant for hypertension schizophrenia gastritis allergies no known drug allergies family history reviewed denied any history of premature CAD or early social history denies history of smoking alcohol or illicit drug use. Review of Systems - Review of Systems Systems not reviewed;Unavailable: Acuity of Condition - Constitutional Constitutional: As Per HPI - EENT Eyes: As Per HPI Ears: As Per HPI Nose/Mouth/Throat: As Per HPI - Cardiovascular Cardiovascular: As Per HPI - Respiratory Respiratory: As Per HPI - Gastrointestinal Gastrointestinal: As Per HPI - Genitourinary Genitourinary: As Per HPI - Reproductive: Male Reproductive:Male: As Per HPI - Musculoskeletal Musculoskeletal: As Per HPI - Integumentary Integumentary: As Per HPI - Neurological Neurological: As Per HPI - Psychiatric Psychiatric: As Per HPI - Endocrine Endocrine: As Per HPI - Hematologic/Lymphatic Hematologic: As Per HPI Past Patient History - Past Social History Alcohol: None Drugs: Denies - CARDIAC Hx Hypertension: Yes - NEUROLOGICAL Other/Comment: schizophrenia - ENDOCRINE/METABOLIC Hx Endocrine Disorders: Yes - MUSCULOSKELETAL/RHEUMATOLOGICAL Hx Falls: No - GASTROINTESTINAL Hx Gastritis: Yes - PSYCHIATRIC Hx Schizophrenia: Yes Meds Allergies/Adverse Reactions: Allergies Allergy/AdvReac Type Severity Reaction Status Date / Time No Known Allergies Allergy Verified 10/14/17 11:29 - Medications Medications: Current Medications Pantoprazole Sodium (Protonix Inj) 40 mg IVP DAILY MIKEL Last Admin: 10/15/17 08:53 Dose: 40 mg Valsartan (Diovan) 160 mg PO DAILY MIKEL Last Admin: 10/15/17 16:02 Dose: 160 mg Physical Exam - Constitutional Appears: Well - Head Exam Head Exam: ATRAUMATIC, NORMAL INSPECTION, NORMOCEPHALIC - Eye Exam Eye Exam: EOMI, Normal appearance, PERRL Pupil Exam: NORMAL ACCOMODATION, PERRL - ENT Exam ENT Exam: Mucous Membranes Moist, Normal Exam - Neck Exam Neck exam: Positive for: Normal Inspection - Respiratory Exam Respiratory Exam: Clear to Auscultation Bilateral, NORMAL BREATHING PATTERN - Cardiovascular Exam Cardiovascular Exam: REGULAR RHYTHM, RRR, +S1, +S2 - GI/Abdominal Exam GI & Abdominal Exam: Normal Bowel Sounds, Soft. absent: Tenderness - Extremities Exam Extremities exam: Positive for: normal inspection - Back Exam Back exam: NORMAL INSPECTION - Neurological Exam Neurological exam: Alert, Reflexes Normal - Psychiatric Exam Psychiatric exam: Flat Affect, Normal Mood - Skin Skin Exam: Dry, Intact, Normal Color, Warm Results - Vital Signs Recent Vital Signs: Last Vital Signs Temp 98.2 F 10/15/17 20:00 Pulse 79 10/15/17 20:00 Resp 19 10/15/17 20:00 BP 140/68 10/15/17 20:00 Pulse Ox 97 10/15/17 20:00 - Labs Result Diagrams: 10/15/17 04:45 10/15/17 04:45 Labs: Laboratory Results - last 24 hr 10/15/17 10/15/17 04:45 04:45 WBC 6.9 RBC 4.79 Hgb 13.6 Hct 41.7 MCV 87.1 MCH 28.4 MCHC 32.6 L RDW 13.7 Plt Count 124 L Sodium 146 Potassium 3.3 L Chloride 104 Carbon Dioxide 26 Anion Gap 19 BUN 17 Creatinine 0.9 Est GFR ( Amer) > 60 Est GFR (Non-Af Amer) > 60 Random Glucose 98 Calcium 9.0 Total Bilirubin 1.2 AST 24 ALT 32 Alkaline Phosphatase 53 Total Protein 7.1 Albumin 3.9 Globulin 3.3 Albumin/Globulin Ratio 1.2 Assessment & Plan (1) CVA (cerebral vascular accident) Assessment and Plan: echo to evaluation for R/L shunting asa MRI brain telemetry Status: Acute (2) ICH (intracerebral hemorrhage) Status: Acute (3) HTN (hypertension) Assessment and Plan: valsartan Status: Chronic
[2017-10-16 05:46] LABS: HEMOGLOBIN 13.9 g/dL (12.0-18.0); MEAN CELL VOLUME 87.1 fl (80.0-94.0); MEAN CORPUSCULAR HEMOGLOBIN 28.8 pg (27.0-31.0); MEAN CORPUSCULAR HGB CONC 33.1 g/dL (33.0-37.0); RBC 4.81 Mil/uL (4.40-5.90); RED CELL DISTRIBUTION WIDTH 13.7 % (11.5-14.5); WHITE BLOOD COUNT 7.2 K/uL (4.8-10.8)
[2017-10-16 06:00] LABS: BLOOD UREA NITROGEN 26 mg/dl (9-20); CALCIUM 9.4 mg/dL (8.4-10.2); GFR AFRICAN-AMERICAN > 60; GFR NON-AFRICAN AMERICAN > 60
--- NOTE | 2017-10-16 10:07 | CARD ---
APPROVED REPORT EXAM: Two-dimensional and M-mode echocardiogram with Doppler and color Doppler. Other Information Quality : AverageRhythm : NSR INDICATION CVA/TIA Echo Enhancing Agent Indication: Rule Out Septal Defect Agent/Amount Used: Agitated Saline 2D DIMENSIONS IVSd0.89 (0.7-1.1cm)LVDd3.63 (3.9-5.9cm) LVOT Diameter3.63 (1.8-2.4cm)PWd0.89 (0.7-1.1cm) IVSs1.96 (0.8-1.2cm)LVDs2.43 (2.5-4.0cm) FS (%) 33.0 %PWs1.96 (0.8-1.2cm) M-Mode DIMENSIONS Left Atrium (MM)3.56 (2.5-4.0cm)IVSd1.09 (0.7-1.1cm) Aortic Root4.50 (2.2-3.7cm)LVDd6.75 (4.0-5.6cm) Aortic Cusp Exc.2.19 (1.5-2.0cm)PWd1.13 (0.7-1.1cm) IVSs2.00 cmFS (%) 53 % LVDs3.16 (2.0-3.8cm)PWs1.72 cm Mitral Valve MV E Mgxnypzg42.5cm/sMV DECEL [id number] A Zkygmaho80.4cm/s MV QCO11dhM/A ratio1.2MVA (PHT)3.17cm2 TDI Lateral E' Peak V10.43cm/sMedial E' Peak V8.72cm/sE/Lateral E'6.0 E/Medial E'7.2 Pulmonary Valve PV Peak Tlraozgt635.0cm/s LEFT VENTRICLE The left ventricle is normal size. There is normal left ventricular wall thickness. Left ventricle systolic function is normal. The Ejection Fraction is 65-70%. The basal 1/3rd of the inferior wall was hypokinetic Remaining LV wall segments contracted normally Transmitral Doppler flow pattern is Grade I-abnormal relaxation pattern. RIGHT VENTRICLE The right ventricle is normal size. There is normal right ventricular wall thickness. The right ventricular systolic function is normal. ATRIA The left atrium size is normal. The right atrium size is normal. AORTIC VALVE The aortic valve is normal in structure. No aortic regurgitation is present. There is no aortic valvular stenosis. MITRAL VALVE The mitral valve is normal in structure. There is no evidence of mitral valve prolapse. There is no mitral valve stenosis. There is no mitral valve regurgitation noted. TRICUSPID VALVE The tricuspid valve is normal in structure. There is no tricuspid valve regurgitation noted. PULMONIC VALVE The pulmonary valve is normal in structure. There is no pulmonic valvular regurgitation. GREAT VESSELS The aortic root is mildly to moderately enlarged. The IVC is normal in size and collapses >50% with inspiration. PERICARDIAL EFFUSION The pericardium appears normal. <Conclusion> The left ventricle is normal size. There is normal left ventricular wall thickness. The basal 1/3rd of the inferior wall was hypokinetic Remaining LV wall segments contracted normally Left ventricle systolic function is normal. The Ejection Fraction is 65-70%. Transmitral Doppler flow pattern is Grade I-abnormal relaxation pattern. The aortic root is mildly to moderately enlarged.
--- NOTE | 2017-10-16 13:54 | CP.PCM.PN ---
Subjective - Date & Time of Evaluation Date of Evaluation: 10/16/17 Time of Evaluation: 13:52 - Subjective Subjective: no events overnight s/p MRI / MRA Objective - Vital Signs/Intake and Output Vital Signs (last 24 hours): Temp Pulse Resp BP Pulse Ox 97.9 F 76 23 136/95 H 100 10/16/17 12:00 10/16/17 13:00 10/16/17 13:00 10/16/17 13:00 10/16/17 13:00 Intake and Output: 10/16/17 10/16/17 06:59 18:59 Intake Total 360 Output Total 750 Balance -390 - Medications Medications: Current Medications Pantoprazole Sodium (Protonix Inj) 40 mg IVP DAILY REPLACED BY [facility] Last Admin: 10/16/17 08:23 Dose: 40 mg Valsartan (Diovan) 160 mg PO DAILY REPLACED BY [facility] Last Admin: 10/16/17 08:23 Dose: 160 mg - Labs Labs: 10/16/17 04:45 10/16/17 04:45 PT 12.7 Seconds (9.8-13.1) 10/14/17 12:22 INR 1.1 (0.9-1.2) 10/14/17 12:22 APTT 30.8 Seconds (25.6-37.1) 10/14/17 12:22 - Constitutional Appears: Well - Head Exam Head Exam: ATRAUMATIC, NORMAL INSPECTION, NORMOCEPHALIC - Eye Exam Eye Exam: EOMI, Normal appearance, PERRL Pupil Exam: NORMAL ACCOMODATION, PERRL - ENT Exam ENT Exam: Mucous Membranes Moist, Normal Exam - Neck Exam Neck Exam: Full ROM, Normal Inspection. absent: Lymphadenopathy - Respiratory Exam Respiratory Exam: Clear to Ausculation Bilateral, NORMAL BREATHING PATTERN - Cardiovascular Exam Cardiovascular Exam: REGULAR RHYTHM, +S1, +S2, Murmur - GI/Abdominal Exam GI & Abdominal Exam: Soft, Normal Bowel Sounds. absent: Tenderness - Extremities Exam Extremities Exam: Full ROM, Normal Capillary Refill, Normal Inspection. absent : Joint Swelling, Pedal Edema - Back Exam Back Exam: NORMAL INSPECTION - Neurological Exam Neurological Exam: Alert, Awake - Psychiatric Exam Psychiatric exam: Normal Affect, Normal Mood - Skin Skin Exam: Dry, Intact, Normal Color, Warm Assessment and Plan (1) CVA (cerebral vascular accident) Assessment & Plan: 2' to cavernous hemangiomas on MRI avoid antiplatelet and AC 2' to ICH low dose statins no further w/u warranted echo reviewed - no bubble crossover Status: Acute (2) ICH (intracerebral hemorrhage) Status: Acute (3) HTN (hypertension) Assessment & Plan: cont valsartan Status: Chronic
--- NOTE | 2017-10-16 16:31 | CP.PCM.PN ---
Subjective - Date & Time of Evaluation Date of Evaluation: 10/16/17 Time of Evaluation: 09:00 - Subjective Subjective: Patient seen and examined at bedside this morning w/ Dr. Hager. There are no acute events overnight, NAD. Patient denies headache, chest pain, SOB, change in speech, weakness, or numbness. Mother is at bedside. Patient seen by industrial relations analyst. Objective - Vital Signs/Intake and Output Vital Signs (last 24 hours): Temp Pulse Resp BP Pulse Ox 97.9 F 81 26 H 138/95 H 100 10/16/17 12:00 10/16/17 14:00 10/16/17 14:00 10/16/17 14:00 10/16/17 14:00 Intake and Output: 10/16/17 10/16/17 06:59 18:59 Intake Total 360 Output Total 750 Balance -390 - Medications Medications: Current Medications Pantoprazole Sodium (Protonix Inj) 40 mg IVP DAILY [facility] Last Admin: 10/16/17 08:23 Dose: 40 mg Valsartan (Diovan) 160 mg PO DAILY [facility] Last Admin: 10/16/17 08:23 Dose: 160 mg - Labs Labs: 10/16/17 04:45 10/16/17 04:45 PT 12.7 Seconds (9.8-13.1) 10/14/17 12:22 INR 1.1 (0.9-1.2) 10/14/17 12:22 APTT 30.8 Seconds (25.6-37.1) 10/14/17 12:22 - Constitutional Appears: Non-toxic, No Acute Distress - Head Exam Head Exam: ATRAUMATIC, NORMAL INSPECTION, NORMOCEPHALIC - Eye Exam Eye Exam: EOMI, Normal appearance Pupil Exam: NORMAL ACCOMODATION, PERRL - ENT Exam ENT Exam: Mucous Membranes Moist - Neck Exam Neck Exam: Full ROM. absent: Tenderness - Respiratory Exam Respiratory Exam: Clear to Ausculation Bilateral. absent: Accessory Muscle Use , Decreased Breath Sounds, Rales, Rhonchi, Wheezes, Respiratory Distress - Cardiovascular Exam Cardiovascular Exam: REGULAR RHYTHM. absent: Tachycardia - GI/Abdominal Exam GI & Abdominal Exam: Soft, Normal Bowel Sounds. absent: Distended, Tenderness - Extremities Exam Extremities Exam: absent: Calf Tenderness, Pedal Edema - Neurological Exam Neurological Exam: Alert, Awake, CN II-XII Intact, Oriented x3 - Skin Skin Exam: Dry, Intact, Normal Color, Warm Assessment and Plan (1) ICH (intracerebral hemorrhage) Status: Acute (2) HTN (hypertension) Status: Chronic - Assessment and Plan (Free Text) Plan: c/w present management afebrile, non-tachycardic, normotensive neurology recommendations appreciated neuro-surgery recommendations appreciated cardiology recommendations appreciated EKG: sinus bradycardia, T wave depression/flattenning on anterolateral leads CT head w/o 10/14/2017: showed left basal ganglia intracranial hemorrhage w/ chronic lacunar infarct repeat CT head w/o: stable left basal ganglia intracranial hemorrhage MRA head w/o contrast: intact [employer] [place] [place], 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
[2017-10-17 06:11] LABS: HEMOGLOBIN 13.2 g/dL (12.0-18.0); MEAN CELL VOLUME 87.9 fl (80.0-94.0); MEAN CORPUSCULAR HEMOGLOBIN 28.3 pg (27.0-31.0); MEAN CORPUSCULAR HGB CONC 32.2 g/dL (33.0-37.0); RBC 4.65 Mil/uL (4.40-5.90); RED CELL DISTRIBUTION WIDTH 13.7 % (11.5-14.5); WHITE BLOOD COUNT 7.1 K/uL (4.8-10.8)
[2017-10-17 08:43] VITALS: RESP 20
[2017-10-17 10:03] LABS: BLOOD UREA NITROGEN 26 mg/dl (9-20); CALCIUM 8.9 mg/dL (8.4-10.2); GFR AFRICAN-AMERICAN > 60; GFR NON-AFRICAN AMERICAN > 60
--- NOTE | 2017-10-17 12:00 | CP.PCM.PCO ---
Assessment & Plan - Assessment and Plan (Free Text) Assessment: Patient seen and examined. Vital signs stable, denies chest pain, shortness of breath nausea vomiting. Still with some dysarthria, walked >250 feet with physical therapy. Spoke to Neurology, cleared for dc on bp meds, no anticoagulants. Rx for outpatient speech therapy. Spoke to SHELLY yip for disposition All the above discussed with INSURANCE FOLLOW UP REPRESENTATIVE Mary covering Dr Brannon who agrees with plan.
[2017-10-17 16:11] VITALS: BP 149/85; PULSE 68; TEMP 97.9; O2SAT 100
--- NOTE | 2017-10-18 01:56 | CP.PCM.PN ---
Subjective - Date & Time of Evaluation Date of Evaluation: 10/17/17 Time of Evaluation: 11:00 - Subjective Subjective: here are no acute events overnight, NAD. Patient denies headache, chest pain, SOB, change in speech, weakness, or numbness. Mother is at bedside. Patient seen by manager protein. Objective - Vital Signs/Intake and Output Vital Signs (last 24 hours): Temp Pulse Resp BP Pulse Ox 97.9 F 68 20 149/85 100 10/17/17 12:00 10/17/17 12:00 10/17/17 12:00 10/17/17 12:00 10/17/17 12:00 - Labs Labs: 10/17/17 05:56 10/17/17 08:21 PT 12.7 Seconds (9.8-13.1) 10/14/17 12:22 INR 1.1 (0.9-1.2) 10/14/17 12:22 APTT 30.8 Seconds (25.6-37.1) 10/14/17 12:22 - Constitutional Appears: Well, No Acute Distress - Head Exam Head Exam: ATRAUMATIC, NORMAL INSPECTION - Eye Exam Eye Exam: Normal appearance Pupil Exam: NORMAL ACCOMODATION - ENT Exam ENT Exam: Mucous Membranes Moist - Neck Exam Neck Exam: Full ROM, Normal Inspection - Respiratory Exam Respiratory Exam: Clear to Ausculation Bilateral, NORMAL BREATHING PATTERN - Cardiovascular Exam Cardiovascular Exam: REGULAR RHYTHM - GI/Abdominal Exam GI & Abdominal Exam: Normal Bowel Sounds - Extremities Exam Extremities Exam: Full ROM, Normal Inspection - Back Exam Back Exam: NORMAL INSPECTION - Neurological Exam Neurological Exam: Alert, Awake, Oriented x3 Neuro motor strength exam: Left Upper Extremity: 5, Right Upper Extremity: 4, Left Lower Extremity: 5, Right Lower Extremity: 4 - Psychiatric Exam Psychiatric exam: Normal Affect - Skin Skin Exam: Normal Color, Warm Assessment and Plan - Assessment and Plan (Free Text) Assessment: (1) ICH (intracerebral hemorrhage) Status: Acute (2) HTN (hypertension) Status: Chronic Plan: c/w present management afebrile, non-tachycardic, normotensive neurology recommendations appreciated neuro-surgery recommendations appreciated cardiology recommendations appreciated EKG: sinus bradycardia, T wave depression/flattenning on anterolateral leads CT head w/o 10/14/2017: showed left basal ganglia intracranial hemorrhage w/ chronic lacunar infarct repeat CT head w/o: stable left basal ganglia intracranial hemorrhage MRA head w/o contrast: intact [place], 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
== END 2017-10-17 16:17 | disposition home or self-care (01) | DRG 810 ==
LOC: H.ER 11:07 → H.ERHOLD 14:47 → H.ICU/CCU 16:15 → H.TEL 10-17 03:03
PROVIDERS: ADMIT Family Medicine; ATTEND Family Medicine
PROC: 3E0234Z Introduction of Serum, Toxoid and Vaccine into Muscle, Percutaneous Approach (ICD-10-PCS; principal; 2017-10-15)
DX: I61.0 Nontraumatic intracerebral hemorrhage in hemisphere, subcortical (principal); I16.0 Hypertensive urgency; I16.1 Hypertensive emergency; F20.9 Schizophrenia, unspecified; R47.1 Dysarthria and anarthria; I73.9 Peripheral vascular disease, unspecified; K29.70 Gastritis, unspecified, without bleeding; Z23 Encounter for immunization